=== PATIENT | male | born 1975 | race Caucasian/White ===

== ENCOUNTER 2024-01-16 16:21 | Outpatient (CLI) | payer BC, SELFPAY | END 2024-01-16 16:22 | disposition home or self-care (01) | LOC: LKVREF 16:23 | PROVIDERS: Visit Provider Family Medicine | DX: M10.9 Gout, unspecified (principal) | CPT/HCPCS: 84550 ==

== ENCOUNTER 2024-02-28 08:58 | Outpatient (CLI) | payer BC, SELFPAY ==
--- NOTE | 2024-02-28 09:15 | CRLHL7_ITS ---
For Patients: As a result of the Century Cures Act, medical imaging exams and procedure reports are released immediately into your electronic medical record. You may view this report before your referring provider. If you have questions, please contact your health care provider. INDICATION: Family history of heart disease and aneurysm. TECHNIQUE: [id number] MRA images of the head. Axial diffusion imaging of the brain. COMPARISON: None. FINDINGS: The internal carotid, middle cerebral, and anterior cerebral arteries are widely patent. The vertebral, basilar, and posterior cerebral arteries are widely patent. No intracranial aneurysm or high-flow vascular malformation. No diffusion restriction to suggest acute infarction. IMPRESSION: 1. Unremarkable MRA of the head. 2. No acute infarction. Dictated by Surendra Nesbitt MD @ 02/28/2024 11:41:54 AM (Electronically Signed)
== END 2024-02-28 08:59 | disposition home or self-care (01) ==
LOC: US 09:00
PROVIDERS: Visit Provider Family Medicine
DX: Z82.49 Family history of ischemic heart disease and other diseases of the circulatory system (principal); Z82.41 Family history of sudden cardiac death
CPT/HCPCS: 70544

== ENCOUNTER 2024-03-06 06:59 | Outpatient (CLI) | payer BC, SELFPAY ==
--- NOTE | 2024-03-06 07:15 | CRLHL7_ITS ---
For Patients: As a result of the Century Cures Act, medical imaging exams and procedure reports are released immediately into your electronic medical record. You may view this report before your referring provider. If you have questions, please contact your health care provider. CLINICAL HISTORY: Family history of ischemic heart disease TECHNIQUE: The carotid circulations and the vertebral arteries in the neck were examined with hendrix-scale ultrasound, color-flow and Doppler spectral analysis. Degrees of stenosis were determined using SRU 2002 Consensus Panel Criteria. FINDINGS: Sonographic images demonstrate no evidence of atherosclerotic plaque formation or suspicious soft tissue mass. There was antegrade blood flow demonstrated within the vertebral arteries and the subclavian arteries demonstrated a normal triphasic waveform. The spectral Doppler tracings of the common carotid, internal and external carotid arteries demonstrate no abnormal turbulence or spectral broadening. There was no significant elevation of peak systolic blood flow which would indicate a hemodynamically-significant stenosis by SRU criteria. The ICA/CCA peak systolic velocity ratio measures 1.0 on the right and 0.9 on the left. IMPRESSION: Normal carotid ultrasound. Dictated by Wally Wade MD @ 03/06/2024 11:08:10 AM (Electronically Signed)
--- NOTE | 2024-03-06 08:15 | CRLHL7_ITS ---
For Patients: As a result of the Cures Act, medical imaging exams and procedure reports are released immediately into your electronic medical record. You may view this report before your referring provider. If you have questions, please contact your health care provider. Examination: US abdominal aorta Indication: Abdominal aortic aneurysm screening. Technique: Squires scale and color Doppler images of the aorta and common iliac arteries are obtained. Comparison: None Findings: Proximal aorta: 2.7 x 2.9 cm Mid aorta: 2.2 x 1.6 cm Distal aorta: 2.0 x 1.6 cm Right common iliac artery: 1.5 x 1.4 cm Left common iliac artery: 1.4 x 1.3 cm Impression: No abdominal aortic aneurysm. Dictated by Wally Wade MD @ 03/06/2024 11:09:18 AM (Electronically Signed)
== END 2024-03-06 07:00 | disposition home or self-care (01) ==
LOC: US 07:00
PROVIDERS: Visit Provider Family Medicine
DX: Z13.6 Encounter for screening for cardiovascular disorders (principal); Z82.49 Family history of ischemic heart disease and other diseases of the circulatory system; Z82.41 Family history of sudden cardiac death
CPT/HCPCS: 76706; 93880